=== PATIENT | female | born 1970 | race Caucasian/White ===

== ENCOUNTER 2016-10-23 13:30 | Emergency (ER) | payer BC ==
[~2016-10-23] VITALS: Ht 144.8 cm; Wt 52.0 kg
[~2016-10-23 13:30] MED LIST: OMEP20CA16 PO
[2016-10-23 13:34] VITALS: Ht 144.8 cm; Wt 52.0 kg
[2016-10-23] MEDS ORDERED: SOD CHLORIDE 0.9% 1,000 ML IV STA (15:07)
[2016-10-23] MEDS ORDERED: ONDANSETRON 4 MG INJ IV STA (15:07)
[2016-10-23] MEDS ORDERED: morphine 4 MG/ML VIAL IV STA (15:07)
--- NOTE | 2016-10-23 15:33 | ERD ---
ER Documentation Chief Complaint Date/Time DATE: 10/23/16 TIME: 15:23 Chief Complaint LLQ PAIN/ pelvic pain x 4 days, pain while urinating. (LISA BLANCHARD PA-C) HPI 46-year-old female with a history of chronic constipation presents the emergency department for complaints of left lower quadrant abdominal pain which has been intermittent 4 days. patient states that at rest she does not experience pain but when she attempts to defecate she experiences a sharp 10 out of 10 left-sided abdominal pain. She denies any fever, chills, dysuria, urinary frequency, hematuria, bloody stool, nausea, vomiting or diarrhea. Her last bowel movement was today and normal for her if she took MiraLAX. Prior to today her last bowel movement was 4 days ago. She reports starting her menstrual period earlier today. (LISA BLANCHARD PA-C) ROS All systems reviewed and are negative except as per history of present illness. (LISA BLANCHARD PA-C) Medications Home Meds Active Scripts Docusate Sodium* (Colace*) 100 Mg Capsule, 100 MG PO DAILY, #30 CAP Prov:LISA BLANCHARD PA-C 10/23/16 Ibuprofen* (Motrin*) 600 Mg Tab, 600 MG PO Q6H Y for PAIN for 7 Days, TAB Prov:LISA BLANCHARD PA-C 10/23/16 Cephalexin* (Keflex*) 500 Mg Capsule, 500 MG PO QID for 7 Days, CAP Prov:LISA BLANCHARD PA-C 10/23/16 Reported Medications Omeprazole* (Omeprazole*) 20 Mg Capsule.dr, 20 MG PO DAILY 01/07/13 Allergies Allergies: Coded Allergies: No Known Drug Allergy (Verified Allergy, Unknown, 10/23/16) PMhx/Soc Medical and Surgical Hx: pt denies Medical Hx, pt denies Surgical Hx History of Surgery: No Anesthesia Reaction: No Hx Neurological Disorder: No Hx Respiratory Disorders: No Hx Cardiac Disorders: No Hx Psychiatric Problems: No Hx Alcohol Use: No Hx Substance Use: No Hx Tobacco Use: No Smoking Status: Never smoker (LISA BLANCHARD PA-C) Physical Exam Vitals Vital Signs Date Time Temp Pulse Resp B/P Pulse Ox O2 Delivery O2 Flow Rate FiO2 10/23/16 13:34 97.5 83 16 118/67 99 (J LUIS EDWARDS PA-C) Physical Exam Const: Well-developed, well-nourished, in mild distress Head: Atraumatic Eyes: Normal Conjunctiva ENT: Normal External Ears, Nose and Mouth. Neck: Full range of motion..~ No meningismus. Resp: Clear to auscultation bilaterally Cardio: Regular rate and rhythm, no murmurs Abd: Soft, non tender, non distended. Normal bowel sounds. No abdominal mass palpable at rest or with bearing down Skin: No petechiae or rashes Back: No midline or flank tenderness Ext: No cyanosis, or edema Neur: Awake and alert Psych: Normal Mood and Affect (LISA BLANCHARD PA-C) Result Diagram: 10/23/16 1525 10/23/16 1525 Results 24 hrs Laboratory Tests Test 10/23/16 15:25 10/23/16 15:40 White Blood Count 10.510^3/ul Red Blood Count 4.6410^6/ul Hemoglobin 13.8g/dl Hematocrit 41.1% Mean Corpuscular Volume 88.6fl Mean Corpuscular Hemoglobin 29.7pg Mean Corpuscular Hemoglobin Concent 33.6g/dl Red Cell Distribution Width 12.7% Platelet Count 14502^3/UL Mean Platelet Volume 10.1fl Neutrophils % 76.2% Lymphocytes % 18.4% Monocytes % 3.8% Eosinophils % 0.9% Basophils % 0.5% Nucleated Red Blood Cells % 0.0/100WBC Neutrophils # 8.010^3/ul Lymphocytes # 1.910^3/ul Monocytes # 0.410^3/ul Eosinophils # 0.110^3/ul Basophils # 0.110^3/ul Nucleated Red Blood Cells # 0.010^3/ul Sodium Level 137mmol/L Potassium Level 3.5mmol/L Chloride Level 101mmol/L Carbon Dioxide Level 28mmol/L Anion Gap 12 Blood Urea Nitrogen 15mg/dl Creatinine 0.71mg/dl Glucose Level 92mg/dl Calcium Level 9.5mg/dl Total Bilirubin 0.1mg/dl Direct Bilirubin 0.00mg/dl Indirect Bilirubin 0.1mg/dl Aspartate Amino Transf (AST/SGOT) 23IU/L Alanine Aminotransferase (ALT/SGPT) 34IU/L Alkaline Phosphatase 69IU/L Total Protein 8.0g/dl Albumin 4.9g/dl Globulin 3.10g/dl Albumin/Globulin Ratio 1.58 Lipase 59U/L Urine Color YELLOW Urine Clarity CLOUDY Urine pH 6.0 Urine Specific [place] 1.023 Urine Ketones NEGATIVEmg/dL Urine Nitrite NEGATIVEmg/dL Urine Bilirubin NEGATIVEmg/dL Urine Urobilinogen NEGATIVEmg/dL Urine Leukocyte Esterase 3+Christopher/ul Urine Microscopic RBC > 182/HPF Urine Microscopic WBC > 182/HPF Urine Squamous Epithelial Cells FEW/HPF Urine Bacteria FEW/HPF Urine Hemoglobin 3+mg/dL Urine Glucose NEGATIVEmg/dL Urine Total Protein 2+mg/dl Current Medications Medications (Trade) Dose Ordered Sig/Dorcas Route PRN Reason Start Time Stop Time Status Last Admin Dose Admin Sodium Chloride (NS) 1,000 ml @ 1,000 mls/hr Q1H STAT IV 10/23/16 15:07 10/23/16 16:06 DC 10/23/16 15:27 Morphine Sulfate (morphine) 4 mg ONCE STAT IV 10/23/16 15:07 10/23/16 15:09 DC 10/23/16 15:26 Ondansetron HCl (Zofran Inj) 4 mg ONCE STAT IV 10/23/16 15:07 10/23/16 15:09 DC 10/23/16 15:27 (J LUIS EDWARDS PA-C) Procedures/MDM This is a 46-year-old female with a history of constipation who presents the emergency department for complaints of left lower quadrant abdominal pain 4 days. Patient states the pain occurs when she attempts to bear down and defecate. Patient denies any dysuria, frequency of urination, bloody stool but does note recent constipation over the past 3 days. Her last bowel movement was this morning and normal for her. She reports that started her menstrual cycle today. Differential diagnosis includes but is not limited to constipation, diverticulitis, cystitis, hernia, urinary calculi, abdominal aortic aneurysm, ovarian torsion, tubo-ovarian abscess, ectopic Patient received a bolus of fluids as well as morphine while in the emergency department. Patient case transferred to physician assistant professor of geographyJ Luis Shoosterine, pending lab results and CT scan. (LISA BLANCHARD PA-C) ER COURSE: I kept the patient and/or family informed of laboratory and diagnostic imaging results throughout the emergency room course. EKG, MONITORS, & DIAGNOSTIC IMAGING: [place] [id number] Radiology Main Line: [phone] DIAGNOSTIC IMAGING REPORT Patient: MARIA TERESA DREW : 1970 Age: 46 Sex: F MR #: [id number] DOS: 10/23/16 1507 Ordering MD: LISA BLANCHARD PA-C [facility] Room/Bed: PROCEDURE: CT Abdomen and Pelvis without contrast. CLINICAL INDICATION: Left lower quadrant pain TECHNIQUE: CT scan of the abdomen and pelvis without contrast was performed on a multi-slice CT scanner without intravenous contrast. Coronal and sagittal reformatted images were obtained from the axial source images. Images were reviewed on a high-resolution PACS workstation. One or more of the following does reduction techniques were used: Automated exposure control; adjustment of the mA and/or kV according to patient size; use of the aorta of reconstruction technique. The total exam CTDI equals 6.3 mGy and the total exam DLP equals 316.04 mGy-cm. COMPARISON: None available. FINDINGS: There are mild dependent changes in the posterior lower lobes. Heart size is normal, and there is no evidence of pericardial thickening or effusion. The liver, spleen, and pancreas are normal given limitations of a noncontrast CT examination. The gallbladder is surgically absent. The adrenal glands are normal. The kidneys without renal calculus or hydronephrosis. The aorta is of normal caliber. There is no retroperitoneal lymph node enlargment. There is no evidence of large or small bowel obstruction. There is moderate retained colonic stool. A normal appendix is identified. No free fluid or fluid collections are identified. No inflammatory changes are seen. The uterus is present. No enlarged pelvic sidewall lymph nodes are seen. There is subtle increased soft tissue density adjacent to the bladder, best seen on the coronal images, which may represent inflammatory change the bladder is otherwise normal. There is a small amount of pelvic free fluid which could be physiologic in this young female. The inguinal regions are unremarkable. The bones are intact. IMPRESSION: 1. Subtle increased density in the fat adjacent to the urinary bladder suggesting inflammatory change. Recommend correlation with cystitis. Consider pelvic ultrasound for further evaluation if indicated. 2. No other evidence of acute intra-abdominal or pelvic process. RPTAT: HJBF .Chavez Camarena MD, Date Time Electronically viewed and signed by .Chavez Camarena MD, MD on 2016 17:04 .B/ CC: LISA BLANCHARD PA-C LAB INTERPRETATION: CBC showed no evidence of systemic infection or severe anemia. CMP showed no evidence of electrolyte abnormalities, severe acidosis, alkalosis, renal failure , or liver disease. Lipase showed no evidence of acute pancreatitis. UA shows 3 + leukocytes with no nitrites. MEDICAL DECISION MAKING: This is a 46-year-old female who presents with left lower quadrant abdominal pain. Vital signs were reviewed. Patient is afebrile. Patient is not hypoxic. Patient was given to me from Lisa Blanchard PA-C. Patient seen improvement in her symptoms. Her CT scan was within normal limits. Her urine shows 3+ leukocytes. Patient likely has a UTI. Low suspicion for ACS, AAA, perforated ulcer, bowel obstruction, cholecystitis, choledocholithiasis, cholangitis, pancreatitis, hepatic abscess, appendicitis, diverticulitis, gastroenteritis, hepatitis, peptic ulcer disease, HELLP syndrome. DISCHARGE: At this time, patient is stable for discharge and outpatient management with no new complaints during the ER course. Patient was sent home with Colace, Keflex and ibuprofen as prescribed by Lisa Blanchard.. Patient will be discharged home with instructions to recheck for new or worsening symptoms such as fever, nausea, weakness, LOC and to follow up with primary care in the next 1-2 days. Patient was advised to return to the ER for any new or worsening symptoms. Plan was discussed and patient and/or family understands and agrees. Home instructions were given. (J LUIS EDWARDS PA-C) Departure Diagnosis: Primary Impression: Abdominal pain Abdominal location: left lower quadrant Qualified Code: R10.32 - Left lower quadrant pain Additional Impression: UTI (urinary tract infection) Urinary tract infection type: acute cystitis Hematuria presence: without hematuria Qualified Code: N30.00 - Acute cystitis without hematuria Condition: Stable LISA BLANCHARD PA-C Oct 23, 2016 15:33 J LUIS EDWARDS PA-C Oct 23, 2016 17:12
[2016-10-23 15:34] LABS: ADD SCAN DIFF NO
[2016-10-23 15:35] LABS: BASOPHIL # 0.1 10^3/ul (0.0-0.1); BASOPHILS % 0.5 % (0.0-2.0); EOSINOPHILS # 0.1 10^3/ul (0.0-0.5); EOSINOPHILS % 0.9 % (0.0-7.0); HEMATOCRIT 41.1 % (37.0-47.0); HEMOGLOBIN 13.8 g/dl (12.0-16.0); LYMPHOCYTES # 1.9 10^3/ul (0.8-2.9); LYMPHOCYTES % 18.4 % (15.0-51.0); MEAN CORPUSCULAR HEMOGLOBIN 29.7 pg (29.0-33.0); MEAN CORPUSCULAR HGB CONC 33.6 g/dl (32.0-37.0); MEAN CORPUSCULAR VOLUME 88.6 fl (82.0-101.0); MEAN PLATELET VOLUME 10.1 fl (7.4-10.4); MONOCYTE # 0.4 10^3/ul (0.3-0.9); MONOCYTES % 3.8 % (0.0-11.0); NEUTROPHILS % 76.2 % (39.0-77.0); PLATELET COUNT 300 10^3/UL (140-415); RED BLOOD COUNT 4.64 10^6/ul (4.20-5.40); RED CELL DISTRIBUTION WIDTH 12.7 % (11.5-14.5); WHITE BLOOD COUNT 10.5 10^3/ul (4.8-10.8)
[2016-10-23 15:52] LABS: ALBUMIN 4.9 g/dl (3.3-4.9); ALBUMIN/GLOBULIN RATIO 1.58; BILIRUBIN,INDIRECT 0.1 mg/dl (0-1.1); BILIRUBIN,TOTAL 0.1 mg/dl (0.2-1.3); CALCIUM 9.5 mg/dl (8.4-10.2); CREATININE 0.71 mg/dl (0.44-1.00); POTASSIUM 3.5 mmol/L (3.5-5.1)
[2016-10-23 15:59] LABS: ADD UMIC YES; UR ASCORBIC ACID 40 mg/dL (NEGATIVE); UR BACTERIA FEW /HPF (NONE SEEN); UR BILIRUBIN (Dip) NEGATIVE (NEGATIVE); UR BLOOD (Dip) 3+ mg/dL (NEGATIVE); UR CLARITY CLOUDY (CLEAR); UR COLOR YELLOW (YELLOW); UR GLUCOSE (Dip) NEGATIVE (NEGATIVE); UR KETONES (Dip) NEGATIVE (NEGATIVE); UR LEUKOCYTE ESTERASE (Dip) 3+ Leu/ul (NEGATIVE); UR NITRITE (Dip) NEGATIVE (NEGATIVE); UR RBC > 182 /HPF (0-5); UR SPECIFIC GRAVITY (Dip) 1.023 (1.003-1.030); UR SQUAMOUS EPITHELIAL CELL FEW /HPF (FEW); UR TOTAL PROTEIN (Dip) 2+ mg/dl (NEGATIVE); UR UROBILINOGEN (Dip) NEGATIVE (NEGATIVE)
[2016-10-23] MEDS ORDERED: DOCU-144 PO (16:03)
[2016-10-23] MEDS ORDERED: CEPH-443 PO (16:03)
[2016-10-23] MEDS ORDERED: IBUP-1542 PO (16:03)
--- NOTE | 2016-10-23 17:05 | RADRPT ---
PROCEDURE: CT Abdomen and Pelvis without contrast. CLINICAL INDICATION: Left lower quadrant pain TECHNIQUE: CT scan of the abdomen and pelvis without contrast was performed on a multi-slice CT sc stefano without intravenous contrast. Coronal and sagittal reformatted images were obtained from the axial source images. Images were reviewed on a high-resolution PACS workstation. One or more of the following does reduction techniques were used: Automated exposure control; adjustment of the mA an d/or kV according to patient size; use of the aorta of reconstruction technique. The total exam CTD I equals 6.3 mGy and the total exam DLP equals 316.04 mGy-cm. COMPARISON: None available. FINDINGS: There are mild dependent changes in the posterior lower lobes. Heart size is normal, and there is n o evidence of pericardial thickening or effusion. The liver, spleen, and pancreas are normal given limitations of a noncontrast CT examination. The g allbladder is surgically absent. The adrenal glands are normal. The kidneys without renal calculus or hydronephrosis. The aorta is of normal caliber. There is no retroperitoneal lymph node enlargment. There is no evidence of large or small bowel obstruction. There is moderate retained colonic stool. A normal appendix is identified. No free fluid or fluid collections are identified. No inflamma tory changes are seen. The uterus is present. No enlarged pelvic sidewall lymph nodes are seen. There is subtle increased soft tissue density adjacent to the bladder, best seen on the coronal images, which may represent in flammatory change the bladder is otherwise normal. There is a small amount of pelvic free fluid wh ich could be physiologic in this young female. The inguinal regions are unremarkable. The bones are intact. IMPRESSION: 1. Subtle increased density in the fat adjacent to the urinary bladder suggesting inflammatory pulido ge. Recommend correlation with cystitis. Consider pelvic ultrasound for further evaluation if jeff cated. 2. No other evidence of acute intra-abdominal or pelvic process. RPTAT: HJBF .Chavez Camarena MD, Date Time Electronically viewed and signed by .Chavez Camarena MD, MD on 10/23/2016 17:04 .B/
== END 2016-10-23 18:09 | disposition home or self-care (01) ==
LOC: FTE 13:30
DX: R10.32 Left lower quadrant pain (principal); N30.00 Acute cystitis without hematuria
CPT/HCPCS: 74176; 80053; 81001; 83690; 85025; J2270; J2405; J7030; 36415; 96361; 96374; 96375

== ENCOUNTER 2017-07-01 22:00 | Emergency (ER) | END 2017-07-02 00:48 | disposition home or self-care (01) ==

== ENCOUNTER 2017-07-03 09:16 | Emergency (ER) | END 2017-07-03 10:51 | disposition home or self-care (01) ==

== ENCOUNTER 2017-07-10 15:17 | Emergency (ER) | END 2017-07-10 15:55 | disposition home or self-care (01) ==

== ENCOUNTER 2018-08-22 08:39 | Day surgery (SDC) | payer BC ==
[~2018-08-22] VITALS: Ht 144.8 cm; Wt 54.7 kg
[~2018-08-22 08:39] MED LIST changes: +CEPH-443 PO; +DOCU-144 PO; +HYDR-4011 PO; +IBUP-1542 PO; +IBUP-1561 PO
[2018-08-22 09:55] VITALS: Ht 144.8 cm; Wt 54.7 kg
[2018-08-22 10:07] VITALS: BP 122/67; PULSE 78; RESP 18
[2018-08-22] MEDS ORDERED: LIDOCAINE 4% SOLUTION 50 ML BTL ONE (10:08)
[2018-08-22] MEDS ORDERED: RANITIDINE (10:14)
--- NOTE | 2018-08-22 10:39 | PREAC ---
Date/Time of Note Date/Time of Note DATE: 08/22/18 TIME: 10:37 Anesthesia Eval and Record Evaluation Time Pre-Procedure Interview DATE: 08/22/18 TIME: 10:37 Age 48 Sex female NPO: 8 hrs Preoperative diagnosis constipation Planned procedure colonoscopy Past Medical History Past Medical History: None Surgery & Anesthesia Issues No known issue Meds Anticoagulation: No Beta Karan within 24 hr: No Reason Beta Karan not given: Pt. not on B-Karan Reported Medications [Ranitidine] No Conflict Check, PRN for STOMACH LAN 08/22/18 Discontinued Reported Medications Omeprazole* (Omeprazole*) 20 Mg Capsule.dr, 20 MG PO DAILY 01/07/13 Discontinued Scripts Ibuprofen* (Motrin*) 400 Mg Tab, 400 MG PO Q6, #30 TAB Prov:EVELYN LADD PA-C 07/02/17 Hydrocodone/Acetaminophen ([place] 5-325 Tablet) 1 Each Tablet, 1 TAB PO Q6H PRN for PAIN, #7 TAB Prov:EVELYN LADD PA-C 07/02/17 Docusate Sodium* (Colace*) 100 Mg Capsule, 100 MG PO DAILY, #30 CAP Prov:ERIK LIND PA-C 10/23/16 Ibuprofen* (Motrin*) 600 Mg Tab, 600 MG PO Q6H PRN for PAIN for 7 Days, TAB Prov:ERIK LIND PA-C 10/23/16 Cephalexin* (Keflex*) 500 Mg Capsule, 500 MG PO QID for 7 Days, CAP Prov:ERIK LIND PA-C 10/23/16 Meds reviewed: Yes Allergies Coded Allergies: No Known Drug Allergy (Verified Allergy, Unknown, 10/23/16) Allergies Reviewed: Yes Labs/Studies Labs Reviewed: Reviewed by anesthesiologist test: Negative Studies: ECG, CXR Pre-procedure Exam Airway: Adequate mouth opening Mallampati: Mallampati I Teeth: Normal Lung: Normal Heart: Normal ASA Physical Status ASA physical status: 1 Emergency: None Planned Anesthetic General/MAC: LMA, MAC Planned Pain Management Parenteral pain med Pre-operative Attestations Prior to commencing anesthesia and surgery, the patient was re-evaluated, there was verification of: *The patient's identity *The results of appropriate recent lab work and preoperative vital signs *The above evaluation not changing prior to induction *Anesthetic plan, risk benefits, alternative and complications discussed with patient/family; questions answered; patient/family understands, accepts and wishes to proceed. ARELY NUNEZ MD August 22, 2018 10:39
[2018-08-22] MEDS ORDERED: FENTAnyl 50 MCG/ML VIAL ONE (11:11)
[2018-08-22] MEDS ORDERED: MIDAZOLAM 1 MG/ML 2 ML INJ ONE ×3 (11:11)
[2018-08-22 11:30] VITALS: BP 109/56; PULSE 78; RESP 22
== END 2018-08-22 12:57 | disposition home or self-care (01) ==
LOC: GIL 08:39
PROVIDERS: ATTEND Internal Medicine Gastroenterology
DX: Z12.11 Encounter for screening for malignant neoplasm of colon (principal); K29.50 Unspecified chronic gastritis without bleeding; K64.4 Residual hemorrhoidal skin tags
CPT/HCPCS: 43239; 45378; 88305; 88312; J2250; J3010; Z7610